=== PATIENT | female | born 1995 | race Caucasian/White ===

== ENCOUNTER 2019-12-09 16:31 | Emergency (ER) | payer MEDICAID ==
[~2019-12-09] VITALS: Ht 170.2 cm; Wt 70.0 kg
[~2019-12-09 16:31] MED LIST: ACET-2119 PO
[2019-12-09 16:36] VITALS: BP 118/65
[2019-12-09] MEDS ORDERED: CLIN300C70 PO (16:48)
== END 2019-12-09 17:11 | disposition home or self-care (01) ==
LOC: ER 16:32
DX: K04.7 Periapical abscess without sinus (principal); Z90.89 Acquired absence of other organs; Z88.0 Allergy status to penicillin
CPT/HCPCS: 99283